=== PATIENT | female | born 1940 | race Caucasian/White ===

== ENCOUNTER 2017-05-26 07:44 | Day surgery (SDC) | payer MEDICARE ==
[~2017-05-26] VITALS: Ht 160 cm; Wt 58.6 kg
[~2017-05-26 07:44] MED LIST: AMLO10TA2 PO; AXIT5TAB PO; LEVO50TA4 PO; LISI10TA3 PO
[2017-05-26 07:55] VITALS: BP 138/88; PULSE 86; RESP 20; TEMP 97.9; O2SAT 97
[2017-05-26] MEDS ORDERED: SODIUM CHLOR 0.9% 1000 ML IV SCH (08:00)
[2017-05-26] MEDS ORDERED: MIDAZOLAM HCL 2 MG/2 ML VIAL ONE (10:11)
--- NOTE | 2017-05-26 10:53 | PD.RAD ---
Post CT Procedure Prog Note Pre Procedure Diagnosis: (1) Pancreatic mass Post Procedure Diagnosis: (1) Pancreatic mass Procedure Date: May 26, 2017 Supervising Radiologist: Naman Mayorga Anesthesia: Conscious Sedation Plan of Activity Patient to Unit: ROPU Patient Condition: Good See PACS Report for procedural detail/treatment Naman Mayorga MD May 26, 2017 10:53
[2017-05-26 11:05] VITALS: BP 123/62; PULSE 68; RESP 18; TEMP 97.6; O2SAT 94
[2017-05-26 11:20] VITALS: BP 115/62; PULSE 61; RESP 20; O2SAT 92
[2017-05-26 11:50] VITALS: BP 110/55; PULSE 60; RESP 20; O2SAT 93
[2017-05-26 12:20] VITALS: BP 123/63; PULSE 73; RESP 20; O2SAT 95
[2017-05-26 12:50] VITALS: BP 126/70; PULSE 70; RESP 20; O2SAT 96
--- NOTE | 2017-05-26 14:12 | RADRPT ---
EXAM DATE/TIME: 05/26/2017 10:31 [facility] COMPARISON: No previous studies available for comparison. 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 Natividad ent also has a right renal malignancy which is treatable if the pancreatic abnormality is not also ma lignant. Therefore, patient presents for pancreatic biopsy. Final aspirations will be performed given the likely require transgastric approach. SEDATION TIME: 30 minutes BIOPSY SITE: Pancreas MEDICATION(S): 1.) 2 mg midazolam (Versed) IV 2.) 100 mcg fentanyl (Sublimaze) IV DEVICE(S): 1.) 22 gauge Chiba MEDICAL HISTORY : Renal cell carcinoma. Hypertension. SURGICAL HISTORY : Hysterectomy. Bladder sling. ENCOUNTER: Initial ACUITY: 1 day PAIN SCORE: 0/10 LOCATION: Pancreas A total of one core specimen(s) were obtained and sent to the laboratory for pathologic evaluation. PROCEDURE: 1. CT guided pancreas biopsy. 2. Conscious sedation with continuous EKG and oximetry monitoring. 3. EKG and oximetry remained stable throughout the procedure. Prior to the procedure informed consent was obtained. Any appropriate prior imaging studies were rev iewed. Using automated exposure control and adjustment of the mA and/or kV according to patient size, radiat ion dose was kept as low as reasonably achievable to obtain optimal diagnostic quality images. DICOM format image data is available electronically for review and comparison. The site was prepped in a sterile fashion. Full sterile technique was used, including cap, mask, stefano rile gloves and gown and a large sterile sheet. Hand hygiene and 2% chlorhexidine and/or betadine/al cohol prep was utilized per protocol for cutaneous antisepsis. The skin and subcutaneous tissues wer e infiltrated with local anesthetic solution. A 22 gauge Chiba needle was advanced into the region of abnormality in the pancreatic neck under care ful CT guidance. Final aspirations were performed of this region. It was then repositioned closer to the pancreatic head which appears more prominent in current CT exam. Aspirations were also performed of this region. Needle was withdrawn. All samples were submitted in Cytolite solution. Follow-up CT s can reveals no hemorrhage or other complication. The patient tolerated the procedure well and there were no complications. The patient was returned to the Radiology Outpatient Unit in stable condition. CONCLUSION: 1. Uncooperative CT-guided fine needle aspiration of pancreatic mass, as above. Naman Mayorga MD on May 26, 2017 at 13:59 Board Certified Radiologist. This report was verified electronically.
== END 2017-05-26 13:05 | disposition home or self-care (01) ==
LOC: HRAD 07:44 → HRIP 07:47 → HRAD 13:05
PROVIDERS: ATTEND Internal Medicine Hematology & Oncology
DX: K86.9 Disease of pancreas, unspecified (principal); C64.9 Malignant neoplasm of unspecified kidney, except renal pelvis; I10 Essential (primary) hypertension; Z85.528 Personal history of other malignant neoplasm of kidney
CPT/HCPCS: 48102; 77012; 88173; 99152; 99153; J2250; J3010; J7030

== ENCOUNTER 2017-06-16 07:46 | Day surgery (SDC) | payer MEDICARE, OTHER ==
[~2017-06-16] VITALS: Ht 158.8 cm; Wt 56.8 kg
[2017-06-16 08:03] VITALS: BP 142/93; PULSE 85; RESP 20; TEMP 97.9; O2SAT 96
[2017-06-16] MEDS ORDERED: LACTATED RINGER'S 1000 ML IV PRN (08:15)
[2017-06-16] MEDS ORDERED: ceFAZolin 2 GM PREMIX 50 ML IV SCH (08:15)
[2017-06-16] MEDS ORDERED: CHLORHEXIDINE GLUCONATE 2 % 1 PACK (2 CLOTHS) TOPICAL PRN (08:15)
[2017-06-16] MEDS ORDERED: METOPROLOL TARTRATE 25 MG TAB PO PRN (08:15)
[2017-06-16] MEDS ORDERED: POVIDONE IODINE 5% (ANTISEPSIS KIT) 4 APPLICATIONS EACH NARE PRN (08:15)
[2017-06-16] MEDS ORDERED: SODIUM CHLORID 0.9% 500 ML IV PRN (08:15)
[2017-06-16 08:28] LABS: AUTOMATED NEUTROPHIL # 5.8 TH/MM3 (1.8-7.7); BASOPHIL % 0.5 % (0.0-2.0); EOSINOPHIL # 0.1 TH/MM3 (0-0.4); EOSINOPHIL % 0.6 % (0.0-4.0); HEMOGLOBIN 13.7 GM/DL (11.6-15.3); LYMPH % 25.4 % (9.0-44.0); LYMPHOCYTE # 2.3 TH/MM3 (1.0-4.8); MEAN CELL VOLUME 98.2 FL (80.0-100.0); MEAN CORPUSCULAR HEMOGLOBIN 34.5 PG (27.0-34.0); MEAN CORPUSCULAR HGB CONC 35.1 % (32.0-36.0); MEAN PLATELET VOLUME 8.7 FL (7.0-11.0); MONO % 8.8 % (0.0-8.0); MONOCYTE # 0.8 TH/MM3 (0-0.9); NEUT % 64.7 % (16.0-70.0); PLATELET COUNT 226 TH/MM3 (150-450); RED BLOOD COUNT 3.97 MIL/MM3 (4.00-5.30); RED CELL DISTRIBUTION WIDTH 13.1 % (11.6-17.2); WHITE BLOOD COUNT 8.9 TH/MM3 (4.0-11.0)
[2017-06-16 08:48] LABS: BICARBONATE 25.9 MEQ/L (21.0-32.0); CALCIUM 9.1 MG/DL (8.5-10.1); CREATININE 0.69 MG/DL (0.50-1.00)
[2017-06-16] MEDS ORDERED: SODIUM CHLOR 0.9% 1000 ML INJ 1,000 ML IV SCH (09:00)
[2017-06-16] MEDS ORDERED: LIDOCAINE HCL 1% 20 ML VIAL ONE (10:05)
--- NOTE | 2017-06-16 11:58 | PD.RAD ---
Post CT Procedure Prog Note Pre Procedure Diagnosis: (1) Right renal mass Post Procedure Diagnosis: (1) Right renal mass Procedure Date: Jun 16, 2017 Supervising Radiologist: Naman Mayorga Anesthesia: General Plan of Activity Patient to Unit: PACU Patient Condition: Good See PACS Report for procedural detail/treatment Naman Mayorga MD Jun 16, 2017 11:58
[2017-06-16] MEDS ORDERED: PROPOFOL 200 MG/20 ML AMP IV ONE (12:00)
[2017-06-16] MEDS ORDERED: LIDOCAINE HCL 1% PF 5 ML SYRINGE OTHER ONE (12:00)
[2017-06-16] MEDS ORDERED: ePHEDrine/NS 25 MG/5 ML SYRINGE IV ONE (12:00)
[2017-06-16] MEDS ORDERED: oxyCODONE/ACETAMINOPHEN 5 MG/325 MG TAB PO PRN (12:00)
[2017-06-16] MEDS ORDERED: ONDANSETRON HCL 4 MG/2 ML VIAL IV ONE (12:00)
[2017-06-16] MEDS ORDERED: ROCURONIUM INJ 50 MG/5 ML SYRINGE IV PUSH ONE (12:00)
[2017-06-16] MEDS ORDERED: GLYCOPYRROLATE 1 MG/5 ML SYRINGE IV PUSH ONE (12:00)
[2017-06-16] MEDS ORDERED: NEOSTIGMINE 5 MG/5 ML SYRINGE IV PUSH ONE (12:00)
[2017-06-16] MEDS ORDERED: DEXAMETHASONE SOD PHOS 4 MG/ML VIAL IV ONE (12:00)
[2017-06-16] MEDS ORDERED: DO NOT ADM ANY ANTICOAGULANT DRUGS PRN (12:12)
[2017-06-16] MEDS ORDERED: *morphine SULFATE 8 MG/ML PERIprocedure ONLY ONE (13:11)
[2017-06-16 13:18] LABS: HEMATOCRIT 38.2 % (35.0-46.0); HEMOGLOBIN 12.8 GM/DL (11.6-15.3)
[2017-06-16 13:20] VITALS: TEMP 97
[2017-06-16 13:42] VITALS: BP 132/77; PULSE 63; RESP 18; O2SAT 98
[2017-06-16 14:12] VITALS: BP 136/79; PULSE 64; RESP 18; O2SAT 95
[2017-06-16 15:12] VITALS: BP 130/68; PULSE 72; RESP 18; O2SAT 96
--- NOTE | 2017-06-16 15:58 | RADRPT ---
EXAM DATE/TIME: 06/16/2017 10:44 INDICATIONS : 76-year-old female with history of apparent although metastatic disease to the right humerus status p ost resection. This demonstrated renal cell carcinoma. Patient also has a sub-3 cm mass in the anteri or right kidney. Plan is for biopsy and ablation. Anesthesia and pain control was provided by the Anesthesia department. DEVICE(S): 1.) 17 gauge Cryoablation probe MEDICAL HISTORY : Renal cell carcinoma. SURGICAL HISTORY : None. ENCOUNTER: Initial ACUITY: 1 day PAIN SCORE: 0/10 LOCATION: Right PROCEDURE : 1. CT guided cryoablation. Under sterile conditions and using aseptic technique with CT guidance the mass was localized and sati sfactory approach was taken to access the lesion. Using automated exposure control and adjustment of the mA and/or kV according to patient size, radiation dose was kept as low as reasonably achievable to obtain optimal diagnostic quality images. DICOM format image data is available electronically for review and comparison. [employer] Cryoprobes were employed using percutaneous technique employing the prescribed probes. A freeze-thaw, freeze-thaw technique was employed and serial imaging demonstrated an ice ball encomp assing the entire lesion. Post procedure images demonstrate expected postoperative changes without e vidence of hematoma. CONCLUSION: Uncomplicated cryoablation of right renal mass, as above. Naman Mayorga MD on June 16, 2017 at 15:54 Board Certified Radiologist. This report was verified electronically.
--- NOTE | 2017-06-16 16:07 | RADRPT ---
EXAM DATE/TIME: 06/16/2017 10:44 [facility] COMPARISON: No previous studies available for comparison. INDICATIONS : Suspected right renal cell carcinoma with metastatic disease to right humerus. SEDATION TIME: 30 minutes BIOPSY SITE: Right DEVICE(S): 1.) 18 gauge Temno core biopsy needle MEDICAL HISTORY : Renal cell carcinoma. SURGICAL HISTORY : None. ENCOUNTER: Initial ACUITY: 1 day PAIN SCORE: 0/10 LOCATION: Right A total of two core specimen(s) were obtained and sent to the laboratory for pathologic evaluation. PROCEDURE: 1. CT guided renal biopsy. Prior to the procedure informed consent was obtained. Any appropriate prior imaging studies were rev iewed. Using automated exposure control and adjustment of the mA and/or kV according to patient size, radiat ion dose was kept as low as reasonably achievable to obtain optimal diagnostic quality images. DICOM format image data is available electronically for review and comparison. The site was prepped in a sterile fashion. Full sterile technique was used, including cap, mask, stefano rile gloves and gown and a large sterile sheet. Hand hygiene and 2% chlorhexidine and/or betadine/al cohol prep was utilized per protocol for cutaneous antisepsis. The skin and subcutaneous tissues wer e infiltrated with local anesthetic solution. With CT guidance the previously identified target was localized. Biopsy was performed using the presc ribed needle as above. Adequate hemostasis was obtained with compression at the puncture site. Follow-up CT scan reveals no hemorrhage. The patient tolerated the procedure well and there were no complications. The patient was returned to the Radiology Outpatient Unit in stable condition. CONCLUSION: Uncomplicated CT guided biopsy. lease see CT ablation report for additional details. Naman Mayorga MD on June 16, 2017 at 16:05 Board Certified Radiologist. This report was verified electronically.
[2017-06-16 16:19] LABS: HEMATOCRIT 37.4 % (35.0-46.0); HEMOGLOBIN 13.4 GM/DL (11.6-15.3)
[2017-06-16 16:58] VITALS: BP 156/90; PULSE 75; RESP 18; O2SAT 99
== END 2017-06-16 17:04 | disposition home or self-care (01) ==
LOC: HRAD 07:46 → HRIP 07:49 → HRAD 17:04
PROVIDERS: ATTEND Internal Medicine Hematology & Oncology
DX: C64.9 Malignant neoplasm of unspecified kidney, except renal pelvis (principal); C79.51 Secondary malignant neoplasm of bone; I10 Essential (primary) hypertension
CPT/HCPCS: 00862; 50200; 50593; 77012; 77013; 80048; 85014; 85018; 85025; 85610; 85730; 88305; J0690; J1100; J2270; J2405; J2710; J7030

== ENCOUNTER 2017-06-23 14:21 | Day surgery (SDC) | payer MEDICARE ==
[2017-06-23 14:38] VITALS: BP 147/93; PULSE 93; RESP 20; TEMP 97.9; O2SAT 97
--- NOTE | 2017-06-24 13:58 | RADRPT ---
EXAM DATE/TIME: 06/23/2017 00:00 [facility] COMPARISON : No previous studies available for comparison. INDICATIONS : <F/U OF RENAL CRYOABLATION<?>> OBJECTIVE: Temperature: 97.9 Heart Rate: 93 Blood Pressure: 147/93 Respiratory: 18 Oximetry: 97 PNEUMONIA VACCINE: HISTORY OF PRESENT ILLNESS: The patient underwent cryoablation of a right renal mass 06/16/17. Biopsy of the lesion was performed the this time as well. PAST MEDICAL HISTORY : 1. HTN 2. HYPOTHYROID 3. 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 BLADDER SLING 2. RT SHOULDER SURGERY SOCIAL HISTORY : NKDA PHYSICAL EXAMINATION: The puncture site for the biopsy and cryoablation of completely healed. There is no evidence of infec tion. ASSESSMENT: The patient is doing well post cryoablation of a right renal mass. The patient was advised she could resume for normal daily activities. Biopsies taken at the time of the cryoablation were reviewed. These were nondiagnostic. PLAN: The patient has followup arranged with oncology. TIME SPENT: 30 minutes. Phuc Ching MD on June 24, 2017 at 13:53 Board Certified Radiologist. This report was verified electronically.
== END 2017-06-23 15:05 | disposition home or self-care (01) ==
LOC: HROP 14:21 → HRIP 14:21 → HROP 15:05
PROVIDERS: ATTEND Radiology Diagnostic Radiology
DX: C64.1 Malignant neoplasm of right kidney, except renal pelvis (principal)